=== PATIENT | female | born 1950 | race African-American/Black ===

== ENCOUNTER 2021-09-20 15:26 | Inpatient (IN) | payer BC, MEDICARE ==
[~2021-09-20] VITALS: Ht 162.6 cm; Wt 57.2 kg
[~2021-09-20 15:26] MED LIST: BACLOFEN10 MG PO; CEPHALEXIN500 MG PO; LEVOTHYROXINE75 MCG PO; MIRALAX17 GM PO; NIFEDIPINE ER30 MG; ROZEREM8 MG PO; TYLENOL WITH C1 EACH PO
[2021-09-20 16:10] LABS: BASOPHILS # (AUTO) 0.1 (0.0-0.1); BASOPHILS % 0.6 % (0.0-1.0); EOSINOPHILS # (AUTO) 0.1 (0.0-0.4); EOSINOPHILS % 0.8 % (0.0-6.0); HEMATOCRIT 40.4 % (34.2-44.1); HEMOGLOBIN 13.5 g/dL (12.0-16.0); LYMPHOCYTES # (AUTO) 4.9 (1.0-3.2); LYMPHOCYTES % 55.4 % (18.0-39.1); MEAN CORPUSCULAR HEMOGLOBIN 30.4 pg (28-32); MEAN CORPUSCULAR HGB CONC 33.4 g/dL (31-35); MONOCYTES # (AUTO) 0.8 (0.2-0.8); MONOCYTES % 8.7 % (4.4-11.3); NEUTROPHILS # (AUTO) 3.1 (2.1-6.9); NEUTROPHILS % 34.3 % (38.7-80.0); PLATELET COUNT 286 x10e3/uL (140-360); RED BLOOD COUNT 4.44 x10e6/uL (3.6-5.1); RED CELL DISTRIBUTION WIDTH 16.1 % (11.7-14.4)
[2021-09-20 16:21] LABS: INR 1.09; PROTHROMBIN TIME 15.1 seconds (11.9-14.5)
[2021-09-20 16:22] LABS: PARTIAL THROMBOPLASTIN TIME 26.9 seconds (23.8-35.5)
[2021-09-20 16:33] LABS: ALBUMIN 4.2 g/dL (3.5-5.0); ANION GAP 19.1 mmol/L (8-16); CALCIUM 8.5 mg/dL (8.4-10.2); CREATININE, SERUM 1.29 mg/dL (0.57-1.11); MAGNESIUM 1.5 MG/DL (1.3-2.1); POTASSIUM 3.1 mmol/L (3.5-5.1)
[2021-09-20 16:39] LABS: CREATINE KINASE MB 2.8 ng/mL (0-5.0)
[2021-09-20 17:04] LABS: EOSINOPHILS % (MANUAL) 2 % (0-7); LYMPHOCYTES % (MANUAL) 52 % (19-48); MONOCYTES % (MANUAL) 11 % (3.4-9.0); NEUTROPHILS % (MANUAL) 32 % (40-74); PLATELET ESTIMATE ADEQUATE; PLATELET MORPHOLOGY COMMENT FEW LARGE; RBC MORPHOLOGY COMMENT NORMAL
[2021-09-20] MEDS ORDERED: SODIUM CHLORIDE 0.9% 500ML 500 ML IV ONE (17:15)
[2021-09-20] MEDS: CEFTRIAXONE 2 GM in SODIUM CHLORIDE 0.9% 100 ML IV SCH (17:17)
[2021-09-20 17:27] LABS: CLARITY,URINE SL CLOUDY (CLEAR); COLOR,URINE STRAW (YELLOW)
[2021-09-20 17:28] LABS: KETONES,URINE 1+ (NEGATIVE); LEUKOCYTE ESTERASE ,URINE TRACE (NEGATIVE); NITRITE,URINE NEGATIVE (NEGATIVE); PROTEIN,URINE DIPSTICK 2+ (NEGATIVE); URINE UROBILINOGEN 1 mg/dL (0.2 - 1)
[2021-09-20] MEDS: FAMOTIDINE 20 MG/2 ML VIAL IV SCH (17:36)
[2021-09-20 17:42] LABS: BACTERIA,URINE MODERATE /HPF; EPITHELIAL CELLS,URINE MODERATE /LPF; WBC,URINE (MAN) 0-5 /HPF (0-5)
[2021-09-20] MEDS ORDERED: KCL 20 MEQ PACKET/ ORAL SOLN NG ONE (17:45)
[2021-09-20] MEDS ORDERED: IOPAMIDOL 370 MG/ML 100 ML INFUS..BTL INJ ONE (17:56)
[2021-09-20 20:35] VITALS: BP 132/72
[2021-09-20 21:00] VITALS: BP 132/72
[2021-09-20] MEDS ORDERED: OMEPRAZOLE20 MG PO (21:14)
[2021-09-20] MEDS ORDERED: COLACE100 MG PO (21:14)
[2021-09-20] MEDS ORDERED: ULTRAM 50MG50 MG PO (21:14)
[2021-09-20] MEDS ORDERED: TIZANIDINE HCL4 MG PO (21:14)
[2021-09-20] MEDS ORDERED: DAPSONE100 MG PO (21:14)
[2021-09-20] MEDS ORDERED: LOSARTAN POTAS100 MG PO (21:14)
[2021-09-20] MEDS ORDERED: ONDANSETRON HCL4 MG PO (21:14)
[2021-09-20] MEDS ORDERED: CONSTULOSE10 GM/15 M (21:14)
[2021-09-20] MEDS ORDERED: LEVOTHYROXINE100 MCG PO (21:14)
[2021-09-20] MEDS ORDERED: TRAZODONE HCL100 MG PO (21:14)
[2021-09-20] MEDS ORDERED: MIRALAX17 GM PO (21:14)
[2021-09-20] MEDS: FUROSEMIDE INJ 10 MG/ML 4 ML VIAL IV SCH (21:45)
[2021-09-20] MEDS ORDERED: TRAZODONE HCL 50 MG TAB PO PRN (22:00)
[2021-09-20] MEDS: HYDROMORPHONE 1MG/1ML INJ IV PRN (22:10)
[2021-09-20 23:35] VITALS: BP 132/72
[2021-09-21] VITALS (11 sets, daily range): BP systolic 139–172; BP diastolic 75–98
[2021-09-21 00:29] LABS: CREATINE KINASE MB 2.9 ng/mL (0-5.0)
[2021-09-21] MEDS: HYDROMORPHONE 1MG/1ML INJ IV PRN ×3 (04:10→16:04)
[2021-09-21] MEDS: ONDANSETRON HCL INJ 2MG/ML 2ML 2 MG/ML VIAL IV PRN ×4 (04:30→20:34)
[2021-09-21 05:44] LABS: BASOPHILS # (AUTO) 0.1 (0.0-0.1); EOSINOPHILS # (AUTO) 0.1 (0.0-0.4); EOSINOPHILS % 0.8 % (0.0-6.0); HEMATOCRIT 36.4 % (34.2-44.1); HEMOGLOBIN 12.1 g/dL (12.0-16.0); LYMPHOCYTES # (AUTO) 2.8 (1.0-3.2); LYMPHOCYTES % 45.5 % (18.0-39.1); MEAN CORPUSCULAR HEMOGLOBIN 30.9 pg (28-32); MEAN CORPUSCULAR HGB CONC 33.2 g/dL (31-35); MEAN CORPUSCULAR VOLUME 92.9 fL (81-99); MONOCYTES # (AUTO) 0.7 (0.2-0.8); MONOCYTES % 11.3 % (4.4-11.3); NEUTROPHILS # (AUTO) 2.5 (2.1-6.9); NEUTROPHILS % 41.2 % (38.7-80.0); PLATELET COUNT 246 x10e3/uL (140-360); RED BLOOD COUNT 3.92 x10e6/uL (3.6-5.1); RED CELL DISTRIBUTION WIDTH 16.6 % (11.7-14.4)
[2021-09-21] MEDS: FAMOTIDINE 20 MG/2 ML VIAL IV SCH ×2 (06:00→17:49)
[2021-09-21 06:19] LABS: ALBUMIN 3.7 g/dL (3.5-5.0); ANION GAP 18.1 mmol/L (8-16); CALCIUM 7.9 mg/dL (8.4-10.2); CHOL/HDL RATIO 7.4 (3.0-3.6); CREATININE, SERUM 1.3 mg/dL (0.57-1.11); POTASSIUM 3.1 mmol/L (3.5-5.1)
[2021-09-21 06:43] LABS: CREATINE KINASE MB 2.8 ng/mL (0-5.0)
[2021-09-21] MEDS: FUROSEMIDE INJ 10 MG/ML 4 ML VIAL IV SCH (09:38)
[2021-09-21] MEDS ORDERED: POTASSIUM CHLORIDE 10MEQ EA PO ONE (10:00)
[2021-09-21 12:43] LABS: CREATINE KINASE MB 3.7 ng/mL (0-5.0)
[2021-09-21] MEDS ORDERED: POLYETHYLENE GLYCOL 3350 17 GM PACK PO PRN (17:15)
[2021-09-21] MEDS ORDERED: TIZANIDINE HCL 4 MG TAB PO PRN (17:15)
[2021-09-21] MEDS ORDERED: TRAMADOL HCL 50 MG TAB PO PRN (17:15)
[2021-09-21] MEDS: CEFTRIAXONE 2 GM in SODIUM CHLORIDE 0.9% 100 ML IV SCH (17:48)
[2021-09-21] MEDS: CARVEDILOL 12.5 MG TAB PO SCH (20:30)
[2021-09-21 20:53] LABS: BODY FLUID COLOR YELLOW; BODY FLUID TYPE PLEURAL
[2021-09-21 20:54] LABS: BODY FLUID APPEARANCE CLEAR
[2021-09-21 20:55] LABS: RBC,BODY FLUID < 2000 cells/uL; WBC,BODY FLUID 212 cells/uL
[2021-09-21 23:19] LABS: MONO/MACROPHG,BODY FLUID 2 %
[2021-09-21 23:20] LABS: LYMPHOCYTES,BODY FLUID 80 %; NEUTROPHILS,BODY FLUID 12 %; OTHER CELLS,BODY FLUID 6 %
[2021-09-22] VITALS (8 sets, daily range): BP systolic 109–154; BP diastolic 68–92
[2021-09-22] MEDS: HYDROMORPHONE 1MG/1ML INJ IV PRN ×2 (04:16→20:45)
[2021-09-22 05:37] LABS: HEMATOCRIT 39.5 % (34.2-44.1); HEMOGLOBIN 13.2 g/dL (12.0-16.0); MEAN CORPUSCULAR HEMOGLOBIN 30.6 pg (28-32); MEAN CORPUSCULAR HGB CONC 33.4 g/dL (31-35); MEAN CORPUSCULAR VOLUME 91.4 fL (81-99); PLATELET COUNT 236 x10e3/uL (140-360); RED BLOOD COUNT 4.32 x10e6/uL (3.6-5.1); RED CELL DISTRIBUTION WIDTH 16.4 % (11.7-14.4)
[2021-09-22] MEDS: FAMOTIDINE 20 MG/2 ML VIAL IV SCH ×2 (06:02→17:18)
[2021-09-22] MEDS: LEVOTHYROXINE SODIUM 100 MCG TAB PO SCH (06:02)
[2021-09-22 06:07] LABS: ANION GAP 19.6 mmol/L (8-16); CREATININE, SERUM 1.19 mg/dL (0.57-1.11); POTASSIUM 3.6 mmol/L (3.5-5.1)
[2021-09-22] MEDS: DAPSONE 100 MG PO SCH (09:00)
[2021-09-22] MEDS ORDERED: LOSARTAN POTASSIUM 100 MG TAB PO SCH (09:00)
[2021-09-22] MEDS ORDERED: SACUBITRIL/VALSARTAN 1 EACH TABLET PO SCH (09:00)
[2021-09-22] MEDS: FUROSEMIDE 20 MG TAB PO SCH (09:46)
[2021-09-22] MEDS: PREDNISONE 20 MG TAB PO SCH (09:48)
[2021-09-22] MEDS: DOCUSATE SODIUM 100 MG CAP PO SCH ×2 (09:50→17:00)
[2021-09-22] MEDS: CARVEDILOL 12.5 MG TAB PO SCH ×2 (09:50→20:44)
[2021-09-22] MEDS: PANTOPRAZOLE SOD 40 MG TABEC PO SCH (09:51)
[2021-09-22] MEDS: ONDANSETRON HCL INJ 2MG/ML 2ML 2 MG/ML VIAL IV PRN (11:30)
[2021-09-22] MEDS: CEFTRIAXONE 2 GM in SODIUM CHLORIDE 0.9% 100 ML IV SCH (17:30)
[2021-09-22] MEDS: SACUBITRIL/VALSARTAN 1 EACH TABLET PO SCH (20:44)
[2021-09-22] MEDS ORDERED: ATORVASTATIN 20 MG TAB PO SCH (21:00)
[2021-09-23] VITALS (8 sets, daily range): BP systolic 102–118; BP diastolic 56–88
[2021-09-23] MEDS: FAMOTIDINE 20 MG/2 ML VIAL IV SCH (05:17)
[2021-09-23] MEDS: LEVOTHYROXINE SODIUM 100 MCG TAB PO SCH (05:17)
[2021-09-23] MEDS: DAPSONE 100 MG PO SCH (09:00)
[2021-09-23] MEDS: PANTOPRAZOLE SOD 40 MG TABEC PO SCH (09:21)
[2021-09-23] MEDS: CARVEDILOL 12.5 MG TAB PO SCH ×2 (09:21→20:32)
[2021-09-23] MEDS: DOCUSATE SODIUM 100 MG CAP PO SCH ×2 (09:21→17:39)
[2021-09-23] MEDS: FUROSEMIDE 20 MG TAB PO SCH (09:22)
[2021-09-23] MEDS: SACUBITRIL/VALSARTAN 1 EACH TABLET PO SCH ×2 (09:22→20:51)
[2021-09-23] MEDS: PREDNISONE 20 MG TAB PO SCH (09:24)
[2021-09-23] MEDS: ONDANSETRON HCL INJ 2MG/ML 2ML 2 MG/ML VIAL IV PRN ×2 (10:15→20:34)
[2021-09-23] MEDS: HYDROMORPHONE 1MG/1ML INJ IV PRN ×2 (10:15→20:34)
[2021-09-23] MEDS: CEFTRIAXONE 2 GM in SODIUM CHLORIDE 0.9% 100 ML IV SCH (17:39)
[2021-09-23] MEDS ORDERED: VALSARTAN/SACUBITRIL 24MG/26MG 1 EA TAB PO SCH (21:00)
[2021-09-24] VITALS (14 sets, daily range): BP systolic 96–131; BP diastolic 55–76
[2021-09-24] MEDS: SODIUM CHLORIDE 0.9% 1000ML 1,000 ML IV SCH ×2 (00:14→14:24)
[2021-09-24] MEDS: LEVOTHYROXINE SODIUM 100 MCG TAB PO SCH (03:21)
[2021-09-24] MEDS: PANTOPRAZOLE SOD 40 MG TABEC PO SCH (08:35)
[2021-09-24] MEDS: CARVEDILOL 12.5 MG TAB PO SCH ×2 (08:35→21:18)
[2021-09-24] MEDS: FUROSEMIDE 20 MG TAB PO SCH (08:35)
[2021-09-24] MEDS: SACUBITRIL/VALSARTAN 1 EACH TABLET PO SCH ×2 (08:35→21:18)
[2021-09-24] MEDS: PREDNISONE 20 MG TAB PO SCH (08:35)
[2021-09-24] MEDS: DOCUSATE SODIUM 100 MG CAP PO SCH ×2 (08:35→18:30)
[2021-09-24] MEDS: DAPSONE 100 MG PO SCH (08:38)
[2021-09-24 08:53] LABS: ALBUMIN/GLOBULIN RATIO 0.8 (0.8-2.0); CALCIUM 7.7 mg/dL (8.4-10.2); CHOL/HDL RATIO 6.2 (3.0-3.6); CREATININE, SERUM 1.11 mg/dL (0.57-1.11)
[2021-09-24] MEDS ORDERED: VERAPAMIL HCL 2.5 MG/ML 2 ML VIAL ONE (09:44)
[2021-09-24] MEDS ORDERED: MIDAZOLAM HCL 2 MG/2 ML VIAL ONE (09:44)
[2021-09-24] MEDS ORDERED: FENTANYL CITRATE/PF 100MCG/2 ML INJ ONE (09:44)
[2021-09-24] MEDS ORDERED: LIDOCAINE HCL 1% LOCAL INJ 20 ML VIAL ONE (09:45)
[2021-09-24] MEDS ORDERED: IOPAMIDOL 370 MG/ML 100 ML INFUS..BTL INJ ONE (09:45)
[2021-09-24] MEDS ORDERED: HEPARIN SOD/SOD CHLORIDE 2,000 ML ONE (09:45)
[2021-09-24] MEDS: HYDROMORPHONE 1MG/1ML INJ IV PRN ×2 (13:21→21:49)
[2021-09-24 16:21] LABS: HEMATOCRIT 41.6 % (34.2-44.1); HEMOGLOBIN 13.7 g/dL (12.0-16.0); LYMPHOCYTES # (AUTO) 1.4 (1.0-3.2); LYMPHOCYTES % 13.4 % (18.0-39.1); MEAN CORPUSCULAR HEMOGLOBIN 30.4 pg (28-32); MEAN CORPUSCULAR HGB CONC 32.9 g/dL (31-35); MEAN CORPUSCULAR VOLUME 92.4 fL (81-99); MONOCYTES # (AUTO) 0.3 (0.2-0.8); MONOCYTES % 2.7 % (4.4-11.3); NEUTROPHILS # (AUTO) 8.8 (2.1-6.9); NEUTROPHILS % 83.5 % (38.7-80.0); PLATELET COUNT 252 x10e3/uL (140-360); RED CELL DISTRIBUTION WIDTH 16.5 % (11.7-14.4)
[2021-09-24] MEDS: CEFTRIAXONE 2 GM in SODIUM CHLORIDE 0.9% 100 ML IV SCH (18:30)
[2021-09-24 21:01] LABS: LYMPHOCYTES % (MANUAL) 7 % (19-48); MONOCYTES % (MANUAL) 3 % (3.4-9.0); NEUTROPHILS % (MANUAL) 84 % (40-74); PLATELET ESTIMATE ADEQUATE; PLATELET MORPHOLOGY COMMENT NORMAL; RBC MORPHOLOGY COMMENT NORMAL
[2021-09-25] VITALS (8 sets, daily range): BP systolic 110–130; BP diastolic 49–65
[2021-09-25] MEDS: LEVOTHYROXINE SODIUM 100 MCG TAB PO SCH (06:19)
[2021-09-25] MEDS: PANTOPRAZOLE SOD 40 MG TABEC PO SCH (08:25)
[2021-09-25] MEDS ORDERED: ONDANSETRON HCL 4 MG ORAL DISINTEGRATING TAB PO PRN (08:30)
[2021-09-25] MEDS: SACUBITRIL/VALSARTAN 1 EACH TABLET PO SCH ×2 (09:00→23:19)
[2021-09-25] MEDS: PREDNISONE 20 MG TAB PO SCH (09:00)
[2021-09-25] MEDS: FUROSEMIDE 20 MG TAB PO SCH (09:00)
[2021-09-25] MEDS: DAPSONE 100 MG PO SCH (09:00)
[2021-09-25] MEDS: DOCUSATE SODIUM 100 MG CAP PO SCH ×2 (09:00→16:13)
[2021-09-25] MEDS: CARVEDILOL 12.5 MG TAB PO SCH ×2 (09:00→23:19)
[2021-09-25] MEDS: SODIUM CHLORIDE 0.9% 1000ML 1,000 ML IV SCH (11:21)
[2021-09-25] MEDS: AZITHROMYCIN 250 MG TAB PO SCH (16:13)
[2021-09-25] MEDS: CEFTRIAXONE 2 GM in SODIUM CHLORIDE 0.9% 100 ML IV SCH (17:48)
[2021-09-26] VITALS: BP 121/71
[2021-09-26 04:00] VITALS: BP 111/71
[2021-09-26] MEDS: LEVOTHYROXINE SODIUM 100 MCG TAB PO SCH (05:11)
[2021-09-26 08:17] VITALS: BP 117/61
[2021-09-26] MEDS: DAPSONE 100 MG PO SCH (09:00)
[2021-09-26] MEDS: DOCUSATE SODIUM 100 MG CAP PO SCH ×2 (09:00→17:00)
[2021-09-26] MEDS: PANTOPRAZOLE SOD 40 MG TABEC PO SCH (09:32)
[2021-09-26] MEDS: SODIUM CHLORIDE 0.9% 1000ML 1,000 ML IV SCH (09:32)
[2021-09-26] MEDS: CARVEDILOL 12.5 MG TAB PO SCH ×2 (09:33→17:03)
[2021-09-26] MEDS: FUROSEMIDE 20 MG TAB PO SCH (09:34)
[2021-09-26] MEDS: SACUBITRIL/VALSARTAN 1 EACH TABLET PO SCH ×2 (09:34→17:03)
[2021-09-26] MEDS: PREDNISONE 20 MG TAB PO SCH (09:34)
[2021-09-26 09:37] VITALS: BP 117/61
[2021-09-26 13:02] VITALS: BP 130/64
[2021-09-26 16:39] VITALS: BP 139/66
[2021-09-26] MEDS: AZITHROMYCIN 250 MG TAB PO SCH (17:03)
== END 2021-09-26 18:30 | disposition home or self-care (01) | DRG 286 ==
LOC: ER 15:57 → ERHOLD 17:13 → MED/SURG 20:26
PROVIDERS: ADMIT Internal Medicine; ATTEND Internal Medicine
PROC: 0W993ZZ Drainage of Right Pleural Cavity, Percutaneous Approach (ICD-10-PCS; principal; 2021-09-20)
PROC: 4A023N7 Measurement of Cardiac Sampling and Pressure, Left Heart, Percutaneous Approach (ICD-10-PCS; 2021-09-24)
PROC: B2111ZZ Fluoroscopy of Multiple Coronary Arteries using Low Osmolar Contrast (ICD-10-PCS; 2021-09-24)
PROC: B2151ZZ Fluoroscopy of Left Heart using Low Osmolar Contrast (ICD-10-PCS; 2021-09-24)
DX: I13.0 Hypertensive heart and chronic kidney disease with heart failure and stage 1 through stage 4 chronic kidney disease, or unspecified chronic kidney disease (principal); I50.21 Acute systolic (congestive) heart failure; M35.2 Behcet's disease; J98.11 Atelectasis; E44.1 Mild protein-calorie malnutrition; J90 Pleural effusion, not elsewhere classified; I44.7 Left bundle-branch block, unspecified; N28.9 Disorder of kidney and ureter, unspecified; F17.210 Nicotine dependence, cigarettes, uncomplicated; E87.6 Hypokalemia; N18.30 Chronic kidney disease, stage 3 unspecified; E78.5 Hyperlipidemia, unspecified; I34.0 Nonrheumatic mitral (valve) insufficiency; I25.5 Ischemic cardiomyopathy; E03.9 Hypothyroidism, unspecified; Z68.21 Body mass index [BMI] 21.0-21.9, adult; Z90.49 Acquired absence of other specified parts of digestive tract; Z90.710 Acquired absence of both cervix and uterus; Z88.6 Allergy status to analgesic agent; Z88.8 Allergy status to other drugs, medicaments and biological substances; Z20.822 Contact with and (suspected) exposure to COVID-19
CPT/HCPCS: 32555; 36415; 71045; 71260; 74177; 74470; 80048; 80053; 80061; 81001; 82550; 82553; 83615; 83690; 83735; 83880; 84157; 84484; 85007; 85025; 85027; 85379; 85610; 85730; 87040; 87070; 87086; 87205; 89051; 93005; 93306; 93458; 94799; 96361; 99152; 99284; C1887; J0456; J0696; J1170; J1940; J2001; J2250; J2405; J3010; J7030; J7040; J7050; J7512; Q0162; Q9967; U0002

== ENCOUNTER 2021-10-02 18:39 | Inpatient (IN) | payer MEDICARE ==
[~2021-10-02] VITALS: Ht 162.6 cm; Wt 64.4 kg
[~2021-10-02 18:39] MED LIST changes: +COLACE100 MG PO; +CONSTULOSE10 GM/15 M; +DAPSONE100 MG PO; +LEVOTHYROXINE100 MCG PO; +LOSARTAN POTAS100 MG PO; +OMEPRAZOLE20 MG PO; +ONDANSETRON HCL4 MG PO; +TIZANIDINE HCL4 MG PO; +TRAZODONE HCL100 MG PO; +ULTRAM 50MG50 MG PO
[2021-10-02 19:06] LABS: BASOPHILS % 0.2 % (0.0-1.0); HEMATOCRIT 38.5 % (34.2-44.1); LYMPHOCYTES # (AUTO) 3.1 (1.0-3.2); LYMPHOCYTES % 34.5 % (18.0-39.1); MEAN CORPUSCULAR HEMOGLOBIN 30.6 pg (28-32); MEAN CORPUSCULAR HGB CONC 33.8 g/dL (31-35); MEAN CORPUSCULAR VOLUME 90.6 fL (81-99); MONOCYTES # (AUTO) 0.4 (0.2-0.8); MONOCYTES % 4.5 % (4.4-11.3); NEUTROPHILS # (AUTO) 5.4 (2.1-6.9); NEUTROPHILS % 59.8 % (38.7-80.0); PLATELET COUNT 223 x10e3/uL (140-360); RED BLOOD COUNT 4.25 x10e6/uL (3.6-5.1); RED CELL DISTRIBUTION WIDTH 16.4 % (11.7-14.4)
[2021-10-02 19:24] LABS: ALBUMIN 3.6 g/dL (3.5-5.0); ANION GAP 16.9 mmol/L (8-16); CALCIUM 9.8 mg/dL (8.4-10.2); CREATININE, SERUM 1.18 mg/dL (0.57-1.11); POTASSIUM 3.9 mmol/L (3.5-5.1)
[2021-10-02 19:31] LABS: CREATINE KINASE MB 2.4 ng/mL (0-5.0)
[2021-10-02 19:40] LABS: CLARITY,URINE SL CLOUDY (CLEAR); COLOR,URINE AMBER (YELLOW); KETONES,URINE NEGATIVE (NEGATIVE); LEUKOCYTE ESTERASE ,URINE NEGATIVE (NEGATIVE); NITRITE,URINE NEGATIVE (NEGATIVE); PROTEIN,URINE DIPSTICK >=300 (NEGATIVE)
[2021-10-02 19:41] LABS: URINE UROBILINOGEN 0.2 mg/dL (0.2 - 1)
[2021-10-02 19:48] LABS: RBC,URINE 0-5 /HPF (0-5)
[2021-10-02 19:49] LABS: AMORPHOUS SEDIMENT,URINE MANY (FEW); BACTERIA,URINE FEW /HPF
[2021-10-02 19:54] LABS: B-TYPE NATRIURETIC PEPTIDE2 11766.5 pg/mL (0-100)
[2021-10-02 20:58] LABS: INR 0.91; PROTHROMBIN TIME 13.1 seconds (11.9-14.5)
[2021-10-02 20:59] LABS: PARTIAL THROMBOPLASTIN TIME 22.6 seconds (23.8-35.5)
[2021-10-02] MEDS ORDERED: ENTRESTO 97 MG1 EACH PO (21:23)
[2021-10-02] MEDS ORDERED: CARVEDILOL6.25 MG PO (21:23)
[2021-10-02] MEDS: CARVEDILOL 3.125 MG TAB PO SCH (21:58)
[2021-10-02 23:06] VITALS: BP 165/103
[2021-10-02 23:19] VITALS: BP 165/103
[2021-10-03] VITALS (8 sets, daily range): BP systolic 125–157; BP diastolic 71–91
[2021-10-03] MEDS ORDERED: SODIUM CHLORIDE 0.9% 250ML 250 ML ONE (02:00)
[2021-10-03] MEDS ORDERED: ONDANSETRON HCL INJ 2MG/ML 2ML 2 MG/ML VIAL IV PRN (04:15)
[2021-10-03 05:46] LABS: BASOPHILS % 0.2 % (0.0-1.0); EOSINOPHILS % 0.4 % (0.0-6.0); HEMATOCRIT 34.9 % (34.2-44.1); HEMOGLOBIN 11.5 g/dL (12.0-16.0); LYMPHOCYTES # (AUTO) 5.6 (1.0-3.2); LYMPHOCYTES % 49.1 % (18.0-39.1); MEAN CORPUSCULAR HEMOGLOBIN 30.4 pg (28-32); MEAN CORPUSCULAR VOLUME 92.3 fL (81-99); MONOCYTES # (AUTO) 0.9 (0.2-0.8); MONOCYTES % 7.8 % (4.4-11.3); NEUTROPHILS # (AUTO) 4.8 (2.1-6.9); NEUTROPHILS % 42.3 % (38.7-80.0); PLATELET COUNT 178 x10e3/uL (140-360); RED BLOOD COUNT 3.78 x10e6/uL (3.6-5.1); RED CELL DISTRIBUTION WIDTH 16.5 % (11.7-14.4)
[2021-10-03 06:16] LABS: ALBUMIN 3.4 g/dL (3.5-5.0); ALBUMIN/GLOBULIN RATIO 1.1 (0.8-2.0); ANION GAP 13.6 mmol/L (8-16); CALCIUM 9.2 mg/dL (8.4-10.2); CREATININE, SERUM 1.12 mg/dL (0.57-1.11); POTASSIUM 3.6 mmol/L (3.5-5.1)
[2021-10-03 06:44] LABS: CREATINE KINASE MB 3.5 ng/mL (0-5.0)
[2021-10-03] MEDS: HYDROMORPHONE 1MG/1ML INJ IV PRN (06:45)
[2021-10-03] MEDS ORDERED: PREDNISONE20 MG PO (06:53)
[2021-10-03] MEDS ORDERED: ALLEGRA-D 24 H1 EACH PO (06:53)
[2021-10-03] MEDS: LEVOTHYROXINE SODIUM 100 MCG TAB PO SCH (07:31)
[2021-10-03] MEDS ORDERED: FUROSEMIDE INJ 10 MG/ML 4 ML VIAL IV SCH (09:00)
[2021-10-03] MEDS ORDERED: SACUBITRIL/VALSARTAN 1 EACH TABLET PO SCH (09:00)
[2021-10-03] MEDS: CARVEDILOL 3.125 MG TAB PO SCH ×2 (09:35→17:30)
[2021-10-03 11:03] LABS: LYMPHOCYTES % (MANUAL) 51 % (19-48); MONOCYTES % (MANUAL) 5 % (3.4-9.0); NEUTROPHILS % (MANUAL) 44 % (40-74); PLATELET ESTIMATE ADEQUATE; PLATELET MORPHOLOGY COMMENT NORMAL; RBC MORPHOLOGY COMMENT NORMAL
[2021-10-03 14:14] LABS: CREATINE KINASE MB 4.1 ng/mL (0-5.0)
[2021-10-03] MEDS: FUROSEMIDE INJ 10 MG/ML 4 ML VIAL IV SCH (17:30)
[2021-10-03 19:02] LABS: BODY FLUID APPEARANCE SL.CLOUDY; BODY FLUID COLOR STRAW; BODY FLUID TYPE PLEURAL
[2021-10-03 19:03] LABS: RBC,BODY FLUID < 2000 cells/uL; WBC,BODY FLUID 89 cells/uL
[2021-10-03 20:14] LABS: LYMPHOCYTES,BODY FLUID 46 %; MONO/MACROPHG,BODY FLUID 15 %; NEUTROPHILS,BODY FLUID 27 %
[2021-10-03 20:15] LABS: OTHER CELLS,BODY FLUID 12 %
[2021-10-03] MEDS: VALSARTAN/SACUBITRIL 24MG/26MG 1 EA TAB PO SCH (21:10)
[2021-10-04] VITALS (8 sets, daily range): BP systolic 104–150; BP diastolic 66–85
[2021-10-04 05:41] LABS: HEMATOCRIT 36.2 % (34.2-44.1); HEMOGLOBIN 12.2 g/dL (12.0-16.0); MEAN CORPUSCULAR HEMOGLOBIN 30.5 pg (28-32); MEAN CORPUSCULAR HGB CONC 33.7 g/dL (31-35); MEAN CORPUSCULAR VOLUME 90.5 fL (81-99); PLATELET COUNT 164 x10e3/uL (140-360); RED CELL DISTRIBUTION WIDTH 15.7 % (11.7-14.4)
[2021-10-04] MEDS: LEVOTHYROXINE SODIUM 100 MCG TAB PO SCH (05:56)
[2021-10-04] MEDS: HYDROMORPHONE 1MG/1ML INJ IV PRN (05:56)
[2021-10-04 07:04] LABS: ANION GAP 17.2 mmol/L (8-16); CALCIUM 8.9 mg/dL (8.4-10.2); CREATININE, SERUM 1.28 mg/dL (0.57-1.11); POTASSIUM 3.2 mmol/L (3.5-5.1)
[2021-10-04 08:02] LABS: EOSINOPHILS % (MANUAL) 4 % (0-7); LYMPHOCYTES % (MANUAL) 34 % (19-48); MONOCYTES % (MANUAL) 4 % (3.4-9.0); NEUTROPHILS % (MANUAL) 58 % (40-74); PLATELET ESTIMATE ADEQUATE; PLATELET MORPHOLOGY COMMENT NORMAL; RBC MORPHOLOGY COMMENT NORMAL
[2021-10-04] MEDS: FUROSEMIDE INJ 10 MG/ML 4 ML VIAL IV SCH ×2 (09:37→17:19)
[2021-10-04] MEDS: CARVEDILOL 3.125 MG TAB PO SCH ×2 (09:38→17:19)
[2021-10-04] MEDS: VALSARTAN/SACUBITRIL 24MG/26MG 1 EA TAB PO SCH ×2 (09:38→20:20)
[2021-10-04] MEDS: PREDNISONE 20 MG TAB PO SCH (12:18)
[2021-10-04] MEDS ORDERED: POTASSIUM CHLORIDE 10MEQ EA PO ONE (16:30)
[2021-10-05 02:00] VITALS: BP 106/59
[2021-10-05 05:02] LABS: HEMATOCRIT 37.7 % (34.2-44.1); HEMOGLOBIN 12.9 g/dL (12.0-16.0); MEAN CORPUSCULAR HEMOGLOBIN 30.6 pg (28-32); MEAN CORPUSCULAR HGB CONC 34.2 g/dL (31-35); MEAN CORPUSCULAR VOLUME 89.3 fL (81-99); PLATELET COUNT 161 x10e3/uL (140-360); RED BLOOD COUNT 4.22 x10e6/uL (3.6-5.1); RED CELL DISTRIBUTION WIDTH 14.6 % (11.7-14.4)
[2021-10-05] MEDS: HYDROMORPHONE 1MG/1ML INJ IV PRN (05:07)
[2021-10-05] MEDS: LEVOTHYROXINE SODIUM 100 MCG TAB PO SCH (05:12)
[2021-10-05 05:22] LABS: ANION GAP 17.1 mmol/L (8-16); CALCIUM 7.9 mg/dL (8.4-10.2); CREATININE, SERUM 1.23 mg/dL (0.57-1.11); POTASSIUM 3.1 mmol/L (3.5-5.1)
[2021-10-05 05:53] LABS: LYMPHOCYTES % (MANUAL) 13 % (19-48); METAMYELOCYTES % (MANUAL) 3 % (0-0); MONOCYTES % (MANUAL) 1 % (3.4-9.0); NEUTROPHILS % (MANUAL) 71 % (40-74); PLATELET ESTIMATE ADEQUATE; PLATELET MORPHOLOGY COMMENT FEW LARGE; RBC MORPHOLOGY COMMENT NORMAL; TOXIC GRANULATION SLIGHT
[2021-10-05 05:55] LABS: TARGET CELLS FEW
[2021-10-05 06:12] VITALS: BP 92/58
[2021-10-05 08:00] VITALS: BP 108/65
[2021-10-05 08:11] VITALS: BP 108/65
[2021-10-05] MEDS ORDERED: POTASSIUM CHLORIDE 20 MEQ TAB CR PO ONE (09:00)
[2021-10-05] MEDS ORDERED: SPIRONOLACTONE 25 MG TAB PO SCH (09:00)
[2021-10-05] MEDS: CARVEDILOL 3.125 MG TAB PO SCH ×2 (09:21→16:11)
[2021-10-05] MEDS: VALSARTAN/SACUBITRIL 24MG/26MG 1 EA TAB PO SCH (09:21)
[2021-10-05] MEDS: PREDNISONE 20 MG TAB PO SCH (09:22)
[2021-10-05] MEDS: FUROSEMIDE 40 MG TAB PO SCH ×2 (09:22→16:10)
[2021-10-05 11:31] VITALS: BP 93/51
[2021-10-05] MEDS ORDERED: FUROSEMIDE40 MG PO (15:33)
[2021-10-05] MEDS ORDERED: POTASSIUM CHLO20 ME1 PO (15:34)
[2021-10-05] MEDS ORDERED: ALDACTONE50 MG PO (15:34)
[2021-10-05] MEDS ORDERED: AUGMENTIN 500-1 EACH PO (15:35)
[2021-10-05 16:00] VITALS: BP 105/62
[2021-10-05] MEDS ORDERED: ENTRESTO 24 MG1 EACH PO (18:10)
[2021-10-05] MEDS ORDERED: ONDANSETRON HCL 4 MG ORAL DISINTEGRATING TAB PO PRN (19:00)
== END 2021-10-05 18:50 | disposition home or self-care (01) | DRG 291 ==
LOC: ER 18:43 → ERHOLD 19:25 → MED/SURG3 21:48
PROVIDERS: ADMIT Internal Medicine; ATTEND Internal Medicine
PROC: 3E03329 Introduction of Other Anti-infective into Peripheral Vein, Percutaneous Approach (ICD-10-PCS; 2021-10-02)
PROC: 0W993ZZ Drainage of Right Pleural Cavity, Percutaneous Approach (ICD-10-PCS; principal; 2021-10-03)
DX: I13.0 Hypertensive heart and chronic kidney disease with heart failure and stage 1 through stage 4 chronic kidney disease, or unspecified chronic kidney disease (principal); I50.23 Acute on chronic systolic (congestive) heart failure; J18.9 Pneumonia, unspecified organism; M35.2 Behcet's disease; J90 Pleural effusion, not elsewhere classified; N18.4 Chronic kidney disease, stage 4 (severe); J98.11 Atelectasis; Z90.49 Acquired absence of other specified parts of digestive tract; Z88.4 Allergy status to anesthetic agent; Z88.8 Allergy status to other drugs, medicaments and biological substances; Z20.822 Contact with and (suspected) exposure to COVID-19; I44.7 Left bundle-branch block, unspecified; N28.9 Disorder of kidney and ureter, unspecified; E78.5 Hyperlipidemia, unspecified; Z87.891 Personal history of nicotine dependence; E03.9 Hypothyroidism, unspecified
CPT/HCPCS: 32555; 36415; 71045; 74470; 80048; 80053; 81001; 82550; 82553; 82948; 83605; 83615; 83880; 84157; 84484; 85007; 85025; 85027; 85610; 85730; 87040; 87070; 87205; 88112; 88305; 89051; 93005; 94799; 99251; 99284; C1729; J1170; J1940; J2405; J2543; J7050; J7512

== ENCOUNTER 2022-01-03 13:23 | Inpatient (IN) | payer MEDICARE ==
[~2022-01-03] VITALS: Ht 162.6 cm; Wt 55.8 kg
[~2022-01-03 13:23] MED LIST changes: +ALDACTONE50 MG PO; +ALLEGRA-D 24 H1 EACH PO; +AUGMENTIN 500-1 EACH PO; +CARVEDILOL6.25 MG PO; +ENTRESTO 24 MG1 EACH PO; +ENTRESTO 97 MG1 EACH PO; +FUROSEMIDE40 MG PO; +POTASSIUM CHLO20 ME1 PO; +PREDNISONE20 MG PO
[2022-01-03 14:54] LABS: BASOPHILS % 0.4 % (0.0-1.0); EOSINOPHILS # (AUTO) 0.2 (0.0-0.4); EOSINOPHILS % 3.2 % (0.0-6.0); HEMATOCRIT 29.5 % (34.2-44.1); HEMOGLOBIN 9.3 g/dL (12.0-16.0); LYMPHOCYTES # (AUTO) 4.5 (1.0-3.2); LYMPHOCYTES % 60.9 % (18.0-39.1); MEAN CORPUSCULAR HEMOGLOBIN 30.4 pg (28-32); MEAN CORPUSCULAR HGB CONC 31.5 g/dL (31-35); MEAN CORPUSCULAR VOLUME 96.4 fL (81-99); MONOCYTES # (AUTO) 0.6 (0.2-0.8); MONOCYTES % 7.5 % (4.4-11.3); NEUTROPHILS # (AUTO) 2.1 (2.1-6.9); NEUTROPHILS % 27.9 % (38.7-80.0); PLATELET COUNT 188 x10e3/uL (140-360); RED BLOOD COUNT 3.06 x10e6/uL (3.6-5.1); RED CELL DISTRIBUTION WIDTH 13.6 % (11.7-14.4)
[2022-01-03 14:58] LABS: INR 1.01; PROTHROMBIN TIME 14.2 seconds (11.9-14.5)
[2022-01-03 14:59] LABS: PARTIAL THROMBOPLASTIN TIME 26.4 seconds (23.8-35.5)
[2022-01-03] MEDS ORDERED: SODIUM CHLORIDE 0.9% 1000ML 1,000 ML IV ONE (15:00)
[2022-01-03 15:06] LABS: ALBUMIN 4.3 g/dL (3.5-5.0); ALBUMIN/GLOBULIN RATIO 1.1 (0.8-2.0); ANION GAP 20.6 mmol/L (8-16); CALCIUM 9.4 mg/dL (8.4-10.2); CREATININE, SERUM 6.91 mg/dL (0.57-1.11)
[2022-01-03 15:11] LABS: POTASSIUM 5.6 mmol/L (3.5-5.1)
[2022-01-03 15:12] LABS: CREATINE KINASE MB 3.2 ng/mL (0-5.0)
[2022-01-03] MEDS ORDERED: ONDANSETRON HCL INJ 2MG/ML 2ML 2 MG/ML VIAL IV PRN (17:30)
[2022-01-03] MEDS ORDERED: SODIUM CHLORIDE FLUSH 10 ML SYR INJ PRN (17:30)
[2022-01-03 20:00] VITALS: BP 113/59
[2022-01-03] MEDS: SODIUM CHLORIDE 0.9% 1000ML 1,000 ML IV SCH (21:55)
[2022-01-04] VITALS (9 sets, daily range): BP systolic 75–129; BP diastolic 42–62
[2022-01-04 00:04] LABS: CREATINE KINASE MB 4.5 ng/mL (0-5.0)
[2022-01-04 07:26] LABS: BASOPHILS % 0.6 % (0.0-1.0); EOSINOPHILS # (AUTO) 0.2 (0.0-0.4); EOSINOPHILS % 2.9 % (0.0-6.0); HEMATOCRIT 25.9 % (34.2-44.1); HEMOGLOBIN 8.4 g/dL (12.0-16.0); LYMPHOCYTES # (AUTO) 4.6 (1.0-3.2); MEAN CORPUSCULAR HEMOGLOBIN 29.9 pg (28-32); MEAN CORPUSCULAR HGB CONC 32.4 g/dL (31-35); MEAN CORPUSCULAR VOLUME 92.2 fL (81-99); MONOCYTES # (AUTO) 0.5 (0.2-0.8); MONOCYTES % 6.7 % (4.4-11.3); NEUTROPHILS # (AUTO) 1.7 (2.1-6.9); NEUTROPHILS % 24.7 % (38.7-80.0); PLATELET COUNT 156 x10e3/uL (140-360); RED BLOOD COUNT 2.81 x10e6/uL (3.6-5.1); RED CELL DISTRIBUTION WIDTH 13.7 % (11.7-14.4)
[2022-01-04 07:28] LABS: ALBUMIN 3.7 g/dL (3.5-5.0); ALBUMIN/GLOBULIN RATIO 1.2 (0.8-2.0); ANION GAP 17.6 mmol/L (8-16); CALCIUM 8.9 mg/dL (8.4-10.2); CREATININE, SERUM 4.75 mg/dL (0.57-1.11); POTASSIUM 5.6 mmol/L (3.5-5.1)
[2022-01-04 07:52] LABS: CREATINE KINASE MB 5.2 ng/mL (0-5.0)
[2022-01-04 08:05] LABS: EOSINOPHILS % (MANUAL) 3 % (0-7); LYMPHOCYTES % (MANUAL) 60 % (19-48); MONOCYTES % (MANUAL) 3 % (3.4-9.0); NEUTROPHILS % (MANUAL) 34 % (40-74); PLATELET ESTIMATE ADEQUATE; PLATELET MORPHOLOGY COMMENT NORMAL; RBC MORPHOLOGY COMMENT NORMAL
[2022-01-04] MEDS ORDERED: SOD POLYSTYRENE SULFONATE SUSP 15 GM/60 ML BTL PO ONE (08:45)
[2022-01-04] MEDS: SODIUM BICARBONATE 650 MG TAB PO SCH ×2 (09:29→17:47)
[2022-01-04] MEDS: SODIUM CHLORIDE 0.9% 1000ML 1,000 ML IV SCH (09:38)
[2022-01-04 10:54] LABS: CLARITY,URINE CLEAR (CLEAR); COLOR,URINE YELLOW (YELLOW); LEUKOCYTE ESTERASE ,URINE NEGATIVE (NEGATIVE); NITRITE,URINE NEGATIVE (NEGATIVE); PROTEIN,URINE DIPSTICK NEGATIVE (NEGATIVE)
[2022-01-04 10:55] LABS: KETONES,URINE NEGATIVE (NEGATIVE); URINE UROBILINOGEN 0.2 mg/dL (0.2 - 1)
[2022-01-04] MEDS ORDERED: TRAMADOL HCL 50 MG TAB PO PRN (11:00)
[2022-01-04] MEDS ORDERED: TIZANIDINE HCL 4 MG TAB PO PRN (11:00)
[2022-01-04 11:07] LABS: BACTERIA,URINE FEW /HPF; EPITHELIAL CELLS,URINE FEW /LPF; WBC,URINE (MAN) 0-5 /HPF (0-5)
[2022-01-04 11:39] LABS: CREATININE,URINE RANDOM 71.47 mg/dL (47-110); TOTAL PROTEIN, URINE 7.5 mg/dL (1-14)
[2022-01-04] MEDS ORDERED: DEXTROSE 50% SYRINGE 50 ML IV STA ×3 (12:14→16:45)
[2022-01-04] MEDS ORDERED: INSULIN REGULAR, HUMAN 100 UNIT/1 ML IV ONE ×3 (12:15→23:45)
[2022-01-04] MEDS ORDERED: CALCIUM GLUC 1 G/50 ML NACL 50 ML IV ONE (12:30)
[2022-01-04 12:52] LABS: EOSINOPHIL SMEAR,URINE NONE SEEN (NONE SEEN)
[2022-01-04] MEDS ORDERED: DEXTROSE 5% 1,000 ML IV ONE (16:45)
[2022-01-05] VITALS (8 sets, daily range): BP systolic 99–127; BP diastolic 48–66
[2022-01-05] MEDS: LEVOTHYROXINE SODIUM 100 MCG TAB PO SCH (06:10)
[2022-01-05 07:22] LABS: BASOPHILS % 0.3 % (0.0-1.0); EOSINOPHILS # (AUTO) 0.2 (0.0-0.4); HEMOGLOBIN 8.5 g/dL (12.0-16.0); LYMPHOCYTES % 59.3 % (18.0-39.1); MEAN CORPUSCULAR HEMOGLOBIN 29.9 pg (28-32); MEAN CORPUSCULAR HGB CONC 32.7 g/dL (31-35); MEAN CORPUSCULAR VOLUME 91.5 fL (81-99); MONOCYTES # (AUTO) 0.6 (0.2-0.8); MONOCYTES % 8.1 % (4.4-11.3); NEUTROPHILS % 29.2 % (38.7-80.0); PLATELET COUNT 152 x10e3/uL (140-360); RED BLOOD COUNT 2.84 x10e6/uL (3.6-5.1); RED CELL DISTRIBUTION WIDTH 13.6 % (11.7-14.4)
[2022-01-05 07:45] LABS: ANION GAP 16.2 mmol/L (8-16); CALCIUM 8.9 mg/dL (8.4-10.2); CREATININE, SERUM 3.04 mg/dL (0.57-1.11); POTASSIUM 4.2 mmol/L (3.5-5.1)
[2022-01-05 08:26] LABS: MAGNESIUM 2.2 MG/DL (1.3-2.1); PHOSPHORUS 5.3 MG/DL (2.3-4.7)
[2022-01-05] MEDS ORDERED: DAPSONE 100 MG PO SCH (09:00)
[2022-01-05] MEDS: SODIUM BICARBONATE 650 MG TAB PO SCH ×2 (10:09→17:05)
[2022-01-05] MEDS: DAPSONE 25 MG TAB PO SCH (10:10)
[2022-01-05] MEDS ORDERED: FUROSEMIDE 40 MG TAB PO ONE (18:30)
[2022-01-06] VITALS (8 sets, daily range): BP systolic 99–131; BP diastolic 55–75
[2022-01-06] MEDS: LEVOTHYROXINE SODIUM 100 MCG TAB PO SCH (05:17)
[2022-01-06 06:28] LABS: ANION GAP 17.1 mmol/L (8-16); CALCIUM 8.8 mg/dL (8.4-10.2); CREATININE, SERUM 2.33 mg/dL (0.57-1.11); POTASSIUM 4.1 mmol/L (3.5-5.1)
[2022-01-06] MEDS: DAPSONE 25 MG TAB PO SCH (09:39)
[2022-01-07 00:15] VITALS: BP 127/65
[2022-01-07 04:50] VITALS: BP 94/60
[2022-01-07] MEDS: LEVOTHYROXINE SODIUM 100 MCG TAB PO SCH (05:16)
[2022-01-07 06:09] LABS: ANION GAP 14.3 mmol/L (8-16); CALCIUM 8.7 mg/dL (8.4-10.2); POTASSIUM 4.3 mmol/L (3.5-5.1)
[2022-01-07 07:45] VITALS: BP_SYST 146; BP_SYST 98; BP_DIAS 47; BP_DIAS 88
[2022-01-07] MEDS: DAPSONE 25 MG TAB PO SCH (09:41)
[2022-01-07 11:28] VITALS: BP 122/53
[2022-01-07 15:44] VITALS: BP 121/54
[2022-01-09 15:12] LABS: ALPHA 2 GLOBULIN URINE PEP 14.3 % (.)
== END 2022-01-07 17:15 | disposition home or self-care (01) | DRG 640 ==
LOC: ER 13:31 → ERHOLD 17:31 → MED/SURG2 19:51
PROVIDERS: ADMIT Internal Medicine; ATTEND Internal Medicine
DX: E87.5 Hyperkalemia (principal); N17.0 Acute kidney failure with tubular necrosis; I13.0 Hypertensive heart and chronic kidney disease with heart failure and stage 1 through stage 4 chronic kidney disease, or unspecified chronic kidney disease; M35.2 Behcet's disease; I50.22 Chronic systolic (congestive) heart failure; I42.8 Other cardiomyopathies; N18.2 Chronic kidney disease, stage 2 (mild); I95.9 Hypotension, unspecified; E03.9 Hypothyroidism, unspecified; I44.7 Left bundle-branch block, unspecified; E78.5 Hyperlipidemia, unspecified; I35.1 Nonrheumatic aortic (valve) insufficiency; E86.0 Dehydration; Z88.8 Allergy status to other drugs, medicaments and biological substances; Z20.822 Contact with and (suspected) exposure to COVID-19
CPT/HCPCS: 0223U; 36415; 51700; 71045; 76770; 80048; 80053; 81001; 81015; 82550; 82553; 82570; 83735; 83970; 84100; 84132; 84156; 84165; 84166; 84484; 84550; 85025; 85610; 85730; 86021; 86039; 93005; 94799; 96361; 99284; J1817; J7030; J7070; J7799